=== PATIENT | female | born 1975 | race Caucasian/White ===

== ENCOUNTER 2017-03-16 18:28 | Emergency (ER) | payer SELFPAY ==
[2017-03-16 18:37] VITALS: BP 116/79; BMI 27.4
--- NOTE | 2017-03-16 19:25 | DR.GENAD ---
HPI - PCP Primary Care Physician: lissette - Complaint/Symptoms Chief Complaint:: fell on buttocks, low back pain - Nurses notes reviewed Nurses Notes Review: Yes - Source History Provided: Patient - Mode of Arrival Mode of Arrival: Ambulatory - Timing Onset of Chief Complaint: 03/16/17 Came on: Suddenly - Duration Duration: Constant Duration: Hours - Severity Severity: Moderate PMH - PMH Past Medical History: Yes Past Medical History: Anxiety, Depression, Hypertension Past Medical History Comment: degeerative disc disease Past Surgical History: Yes Surgical History: , [employer] Surgery Past Surgical History Comment: lamenectomy/discectomy - Family History History of Family Medical Conditions: Yes Family Medical History: Cancer - Social History Does patient currently use any type of tobacco product: Yes Have you used tobacco products in the last 12 months: Yes Type of Tobacco Use: Cigarettes Does any household member use tobacco: No Alcohol Use: Rarely Do you use any recreational Drugs:: No Lives With: Alone Lives Where: Home - infectious screening In the last 2 months have you had wt loss of >10#?: NO Have you had fever, night sweats or hemotysis?: No Have you traveled outside the country in the last 6 months?: No Isolation: Standard PE - Vital Signs Vitals: Temperature 97.7 F Pulse Rate 88 Respiratory Rate 16 Blood Pressure 116/79 O2 Sat by Pulse Oximetry 97 - Discharge Plan Condition: Stable Prescriptions: Cyclobenzaprine HCl [FLEXERIL 10 MG *] 10 mg PO TID #20 tab - Follow ups/Referrals Follow ups/Referrals: ALEKSANDRA COON [Primary Care Provider] - 3 days - Instructions Instructions: Back Pain, Adult, [id number], Musculoskeletal Pain Additional Instructions: RETURN TO ED IF WORSE. CONTINUE MOBIC AND PAIN MED YOU HAVE AT HOME.
--- NOTE | 2017-03-16 19:57 | CT ---
CT pelvis without contrast Indication: Lower back pain after fall Comparison: None available Technique: Multiple axial images of the pelvis were obtained from the iliac crest to the proximal thi gh without administration of IV contrast. Sagittal and coronal reformats were performed and reviewed . Findings: There is no acute fracture, dislocation or diastasis within the pelvis. Both femoral heads are well seated with their respective acetabuli. Visualized alignment of the lower lumbar spine is maintained. Interbody spacers noted at the L5-S1 disc.. Previous posterior decompression at L5 is also noted. Imaging of the deep pelvis demonstrates no acute inflammatory process, adenopathy or abnormal free fl uid. IMPRESSION: 1. No acute osseous or soft tissue abnormality within the pelvis. Reported By:
--- NOTE | 2017-03-16 20:00 | CT ---
CT LUMBAR SPINE WITHOUT CLINICAL HISTORY: 41-year-old female status post fall with prior back surgery and low back pain. COMPARISON: None. TECHNIQUE: Multiple, noncontrasted axial CT images were obtained from the thoracolumbar junction to the sacrum and reconstructed in the sagittal and coronal planes. FINDINGS: The most caudad, fully-formed intervertebral disc will be labeled L5-S1 for the purpose of this dictation. There is a normal lumbar lordosis. Interbody cages L5-S1 with mild loss of disc space and degenerative retrolisthesis L3 on L4. The posterior elements are normal in appearance and alignm ent. There is no evidence of significant neural foraminal stenosis or central canal compromise. T11-L4: No central canal or neural foraminal stenosis. L4-S1: Severe bilateral facet arthropathy. IMPRESSION: 1. No acute fracture or malalignment. 2. Multilevel degenerative change at L4-S1 with interbody cages L5-S1. Reported By:
[2017-03-16] MEDS ORDERED: TORADOL 60 MG VIAL IM ONE (20:01)
[2017-03-16] MEDS ORDERED: NORFLEX INJ IM ONE (20:01)
[2017-03-16] MEDS ORDERED: TORADOL 60 MG VIAL ONE (20:20)
[2017-03-16] MEDS ORDERED: NORFLEX INJ ONE (20:20)
== END 2017-03-16 21:36 | disposition home or self-care (01) ==
LOC: ER 18:44
DX: M79.1 Myalgia (principal); M54.5 Low back pain
CPT/HCPCS: 72131; 72192; 96372; 99282; 99283; J1885; J2360